=== PATIENT | female | born 1955 | race African-American/Black ===

== ENCOUNTER → 2016-12-13 | Outpatient (CLI) | payer OTHER ==
[2016-05-20 11:50] VITALS: BP 116/64
[~2016-12-13] MED LIST: AMLO5TAB2 PO; HYDR-971 PO; HYDR12.58 PO; Hydrocodone/Acetaminophen PO; LEVO50TA5 PO; OMEP40CA2 PO; RANI50VI5 IJ; SIMV20TA3 PO; VENL37.5 PO; VENL75TA PO
--- NOTE | 2016-12-14 11:22 | CARD ---
APPROVED REPORT EXAM: Two-dimensional and M-mode echocardiogram with Doppler and color Doppler. Other Information Quality : AverageHR: 77bpm Rhythm : NSR INDICATION Murmur 2D DIMENSIONS RVDd2.9 (2.9-3.5cm)Left Atrium(2D)3.4 (1.6-4.0cm) IVSd1.3 (0.7-1.1cm)Aortic Root(2D)2.0 (2.0-3.7cm) LVDd3.4 (3.9-5.9cm)LVOT Diameter2.0 (1.8-2.4cm) PWd1.2 (0.7-1.1cm)LVDs1.6 (2.5-4.0cm) FS (%) 33.0 %SV38.5 ml LVEF(%)65.0 (>50%) Aortic Valve AoV Peak Montana.137.9cm/sAoV VTI26.1cm AO Peak GR.7.6mmHgLVOT Peak Montana.135.6cm/s AO Mean GR.4mmHgAVA (VMAX)2.06cm2 Mitral Valve MV E Skrbcwdz12.6cm/sMV E Peak Gr.4mmHg MV DECEL [id number] A Wrgkgdwa85.5cm/s MV E Mean Gr.2mmHgMV LJI10gt E/A Ratio1.0MV A Pcaalwdl577dc MVA (PHT)3.47cm2 Tricuspid Valve TR P. Ecwndibz707tw/sRAP WAKYMHAW9lkSl TR Peak Gr.65ydUxQOSO57uwQy Pulmonary Vein S1 Fdwdvodi59.6cm/sD2 Ddiewkxa75.6cm/s PVa flizodkj901gfdp LEFT VENTRICLE The left ventricle is normal size. There is mild concentric left ventricular hypertrophy. Left ventri niall systolic function is hyperdynamic. The Ejection Fraction is 60-65%. There is normal LV segmental wall motion. The left ventricular diastolic function and filling is normal for age. There is no ventr icular septal defect visualized. RIGHT VENTRICLE The right ventricle is normal size. The right ventricle is mildly hypertrophied. The right ventricula r systolic function is normal. ATRIA The left atrium size is normal. The right atrium size is normal. The interatrial septum is intact wit h no evidence for an atrial septal defect or patent foramen ovale as noted on 2-D or Doppler imaging. AORTIC VALVE The aortic valve is trileaflet. The aortic valve is normal in structure and function. Doppler and Col or Flow revealed no significant aortic regurgitation. There is no significant aortic valvular stenosi s. MITRAL VALVE The mitral valve is normal in structure and function. There is no evidence of mitral valve prolapse. There is no mitral valve stenosis. Doppler and Color Flow revealed mild mitral regurgitation. TRICUSPID VALVE The tricuspid valve is normal in structure. Doppler and Color Flow revealed mild tricuspid regurgitat ion. There is no pulmonary hypertension. The PA pressure was estimated at 24 mmHg. PULMONIC VALVE The pulmonary valve is normal in structure. Doppler and Color Flow revealed mild pulmonic valvular re gurgitation. There is no pulmonic valvular stenosis. GREAT VESSELS The aortic root is normal in size. The ascending aorta is normal in size. The IVC is normal in size a nd collapses >50% with inspiration. PERICARDIAL EFFUSION There is no pleural effusion. There is no evidence of significant pericardial effusion. Critical Notification Critical Value: No <Conclusion> Left ventricle systolic function is hyperdynamic. The Ejection Fraction is 60-65%. There is normal LV segmental wall motion.
== END | disposition home or self-care (01) ==
LOC: ECHO 12:29
PROVIDERS: ATTEND Physician Assistant Medical
DX: R01.1 Cardiac murmur, unspecified (principal); I51.7 Cardiomegaly; I34.0 Nonrheumatic mitral (valve) insufficiency; I37.1 Nonrheumatic pulmonary valve insufficiency; I07.1 Rheumatic tricuspid insufficiency
CPT/HCPCS: 93306

== ENCOUNTER 2017-08-03 12:32 | Emergency (ER) | payer OTHER ==
[~2017-08-03] VITALS: Ht 162.6 cm; Wt 90.7 kg
--- NOTE | 2017-08-03 12:54 | EKG ---
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
--- NOTE | 2017-08-03 13:08 | RAD ---
AP chest, 08/03/2017: History: Headache, vomiting, weakness Comparison is made to a study from 02/13/2015. The heart size and pulmonary vascularity are normal. There is minimal linear basilar scarring. A tiny left parahilar nodule opacity probably represents a summation of vascular and rib shadows rather than a true pulmonary nodule. No pulmonary consolidation is seen. There is no evidence of pleural fluid. IMPRESSION: 1. No acute cardiopulmonary abnormality is detected. 2. Tiny left parahilar nodular shadow as described above. Radiographic follow-up is suggested to exclude an active process.
[2017-08-03 13:20] LABS: BASO # 0.1 x10^3/uL (0.0-0.2); BASO % 1 % (0-3); EOS % 1 % (0-3); HEMATOCRIT 49.1 % (36.0-47.0); HEMOGLOBIN 16.7 g/dL (12.0-15.5); LYMPH # 1.3 x10^3/uL (1.0-4.8); LYMPH % 28 % (24-48); MEAN CORPUSCULAR HEMOGLOBIN 31 pg (25-35); MEAN CORPUSCULAR HGB CONC 34 g/dL (31-37); MEAN CORPUSCULAR VOLUME 92 fL (79-100); MONO % 7 % (0-9); NEUT % 63 % (31-73); PLATELET COUNT 235 x10^3/uL (140-400); RED BLOOD COUNT 5.34 x10^6/uL (3.50-5.40); RED CELL DISTRIBUTION WIDTH 13.9 % (11.5-14.5); WHITE BLOOD COUNT 4.8 x10^3/uL (4.0-11.0)
[2017-08-03 13:25] LABS: INR 1.1 (0.8-1.1); PROTHROMBIN TIME PATIENT 13.4 SEC (11.7-14.0)
[2017-08-03] MEDS ORDERED: MECLIZINE HCL 12.5 MG TABLET. PO ONE (13:30)
[2017-08-03] MEDS ORDERED: ONDANSETRON PF 4 MG/2 ML VIAL. IV ONE (13:30)
[2017-08-03] MEDS ORDERED: IV NORMAL SALINE 1000ML BAG 1,000 ML IV ONE (13:30)
[2017-08-03] MEDS ORDERED: ACETAMINOPHEN 500 MG TABLET PO ONE (13:30)
[2017-08-03 13:49] LABS: BILIRUBIN,URINE NEGATIVE (NEG); GLUCOSE,URINE NEGATIVE (NEG); NITRITE,URINE NEGATIVE (NEG); PH,URINE 6.5; PROTEIN,URINE NEGATIVE (NEG-TRACE); UROBILINOGEN,URINE 0.2 mg/dL (0.2 mg/dL)
[2017-08-03 13:54] LABS: BACTERIA,URINE 0 /HPF (0-FEW); RBC,URINE OCC /HPF (0-2); SQUAMOUS EPITHELIAL CELL,UR MOD /LPF; WBC,URINE OCC /HPF (0-4)
--- NOTE | 2017-08-03 13:56 | RAD ---
CT head without contrast History: Weakness. Comparison: None. Procedure: Axial images are obtained of the head from the skull base through the vertex without IV contrast. Findings: Mild prominent appearing subdural space in the bifrontal region could be chronic hygromas or age related cerebral atrophic changes visualized. The ventricles and sulci are normal for the patient's age. No mass-effect, intracranial mass, midline shift, hemorrhage or obvious acute infarction is identified. Basilar cisterns are patent. Bone windows demonstrate no significant calvarial abnormality. The visualized paranasal sinuses appear clear. Impression: 1. No acute findings. Mild prominent appearing subdural space in the bifrontal region could be chronic hygromas or age related cerebral atrophic changes visualized. PQRS Compliance Statement: One or more of the following individualized dose reduction techniques were utilized for this examination: 1. Automated exposure control 2. Adjustment of the mA and/or kV according to patient size 3. Use of iterative reconstruction technique
[2017-08-03 14:26] LABS: CALCIUM 10.4 mg/dL (8.5-10.1); GFR 68.2; POTASSIUM 3.4 mmol/L (3.5-5.1)
[2017-08-03 14:31] LABS: ALBUMIN 4.2 g/dL (3.4-5.0); ALBUMIN/GLOBULIN RATIO 1.1 (1.0-1.7); MAGNESIUM 2.3 mg/dL (1.8-2.4); TOTAL BILIRUBIN 0.5 mg/dL (0.2-1.0); TOTAL PROTEIN 8.1 g/dL (6.4-8.2)
--- NOTE | 2017-08-03 14:38 | PHYS DOC ---
Past Medical History Past Medical History: GERD, High Cholesterol, Hypertension, Hypothyroid Past Surgical History: , Other Additional Past Surgical Histo: lypoma from back of neck; partial thyrodectomy Alcohol Use: Rarely Drug Use: None Adult General Chief Complaint Chief Complaint: nausea and vomiting HPI HPI Patient is a 61 year old female who presents with nausea that started around 9: 30 this morning. She states she just wasn't feeling very well. She was at work and around lunchtime she thought maybe she should eat, she repeatedly checked her blood pressure which was slightly elevated. When she did attempt to eat she vomited the food back up. She had some dizziness described as vertigo when she would move her head read she denies any sinus congestion or ear pain, no sore throat. Denies significant cough, no fevers, no chest pain or shortness of breath. She continues to have the nausea, no prior similar symptoms. Patient has a follow-up appointment with her primary care physician tomorrow. Denies cardiac disease, does have a history of hypertension and hyperlipidemia. She had an echocardiogram performed earlier this year that was normal. Review of Systems Review of Systems Constitutional: Denies fever or chills [] Eyes: Denies change in visual acuity, redness, or eye pain [] HENT: Denies nasal congestion or sore throat [] Respiratory: Denies cough or shortness of breath [] Cardiovascular: Denies chest pain GI: Denies abdominal pain, bloody stools or diarrhea [] : Denies dysuria or hematuria [] Musculoskeletal: Denies back pain or joint pain [] Integument: Denies rash or skin lesions [] Neurologic: Developed a left-sided headache , denies focal weakness or sensory changes [] Current Medications Current Medications Current Medications Medications (Trade) Dose Ordered Sig/Inderjit Start Time Stop Time Status Last Admin Dose Admin Acetaminophen (Tylenol) 1,000 mg 1X ONCE 08/03/17 13:30 08/03/17 13:31 DC 08/03/17 13:29 1,000 MG Meclizine HCl (Antivert) 25 mg 1X ONCE 08/03/17 13:30 08/03/17 13:31 DC 08/03/17 13:29 25 MG Metoclopramide HCl (Reglan) 10 mg 1X ONCE 08/03/17 14:45 08/03/17 14:46 DC 08/03/17 14:50 10 MG Ondansetron HCl (Zofran) 4 mg 1X ONCE 08/03/17 13:30 08/03/17 13:31 DC 08/03/17 13:29 4 MG Sodium Chloride 1,000 ml @ 1,000 mls/hr 1X ONCE 08/03/17 13:30 08/03/17 14:29 DC 08/03/17 13:28 1,000 MLS/HR Allergies Allergies Allergies Coded Allergies Type Severity Reaction Last Updated Verified codeine Allergy Intermediate takes Lortab at home 05/20/16 No Physical Exam Physical Exam Constitutional: Well developed, well nourished, no acute distress, non-toxic appearance. [] HENT: Normocephalic, atraumatic, bilateral external ears normal, oropharynx moist, no oral exudates, nose normal. [] Eyes: PERRLA, EOMI, conjunctiva normal, no discharge. [] Neck: Normal range of motion, no tenderness, supple, no stridor. [] Cardiovascular:Heart rate regular rhythm, no murmur [] Lungs & Thorax: Bilateral breath sounds clear to auscultation , no wheeze or crackles Abdomen: Bowel sounds normal, soft, no tenderness, no masses, no pulsatile masses. [] Skin: Warm, dry, no erythema, no rash. [] Back: No tenderness, no CVA tenderness. [] Extremities: No tenderness, no cyanosis, no clubbing, ROM intact, no edema. [] Neurologic: Alert and oriented X 3, normal motor function, normal sensory function, no focal deficits noted. Cranial nerves II through XII intact, 5 over 5 bilateral handgrip Psychologic: Affect normal, judgement normal, mood normal. [] Current Patient Data Vital Signs Vital Signs Date Time Temp Pulse Resp B/P (MAP) Pulse Ox O2 Delivery O2 Flow Rate FiO2 08/03/17 12:32 98.3 78 18 157/83 (107) 94 Room Air 98.3 Lab Values Laboratory Tests Test 08/03/17 13:05 08/03/17 13:35 White Blood Count 4.8 x10^3/uL (4.0-11.0) Red Blood Count 5.34 x10^6/uL (3.50-5.40) Hemoglobin 16.7 g/dL (12.0-15.5) H Hematocrit 49.1 % (36.0-47.0) H Mean Corpuscular Volume 92 fL (79-100) Mean Corpuscular Hemoglobin 31 pg (25-35) Mean Corpuscular Hemoglobin Concent 34 g/dL (31-37) Red Cell Distribution Width 13.9 % (11.5-14.5) Platelet Count 235 x10^3/uL (140-400) Neutrophils (%) (Auto) 63 % (31-73) Lymphocytes (%) (Auto) 28 % (24-48) Monocytes (%) (Auto) 7 % (0-9) Eosinophils (%) (Auto) 1 % (0-3) Basophils (%) (Auto) 1 % (0-3) Neutrophils # (Auto) 3.0 x10^3uL (1.8-7.7) Lymphocytes # (Auto) 1.3 x10^3/uL (1.0-4.8) Monocytes # (Auto) 0.3 x10^3/uL (0.0-1.1) Eosinophils # (Auto) 0.1 x10^3/uL (0.0-0.7) Basophils # (Auto) 0.1 x10^3/uL (0.0-0.2) Prothrombin Time 13.4 SEC (11.7-14.0) Prothrombin Time INR 1.1 (0.8-1.1) Sodium Level 141 mmol/L (136-145) Potassium Level 3.4 mmol/L (3.5-5.1) L Chloride Level 102 mmol/L (98-107) Carbon Dioxide Level 27 mmol/L (21-32) Anion Gap 12 (6-14) Blood Urea Nitrogen 16 mg/dL (7-20) Creatinine 1.0 mg/dL (0.6-1.0) Estimated GFR (Cockcroft-Gault) 68.2 BUN/Creatinine Ratio 16 (6-20) Glucose Level 120 mg/dL (70-99) H Calcium Level 10.4 mg/dL (8.5-10.1) H Magnesium Level 2.3 mg/dL (1.8-2.4) Total Bilirubin 0.5 mg/dL (0.2-1.0) Aspartate Amino Transferase (AST) 30 U/L (15-37) Alanine Aminotransferase (ALT) 26 U/L (14-59) Alkaline Phosphatase 73 U/L (46-116) Troponin I Quantitative < 0.017 ng/mL (0.000-0.055) Total Protein 8.1 g/dL (6.4-8.2) Albumin 4.2 g/dL (3.4-5.0) Albumin/Globulin Ratio 1.1 (1.0-1.7) Urine Collection Type Unknown Urine Color Yellow Urine Clarity Clear Urine pH 6.5 Urine Specific Burnham 1.015 Urine Protein Negative mg/dL (NEG-TRACE) Urine Glucose (UA) Negative mg/dL (NEG) Urine Ketones (Stick) Negative mg/dL (NEG) Urine Blood Negative (NEG) Urine Nitrite Negative (NEG) Urine Bilirubin Negative (NEG) Urine Urobilinogen Dipstick 0.2 mg/dL (0.2 mg/dL) Urine Leukocyte Esterase Negative (NEG) Urine RBC Occ /HPF (0-2) Urine WBC Occ /HPF (0-4) Urine Squamous Epithelial Cells Mod /LPF Urine Bacteria 0 /HPF (0-FEW) Laboratory Tests 08/03/17 13:05 Laboratory Tests 08/03/17 13:05 EKG EKG 80 bpm, sinus, normal axis, QTC of 491, T-wave inversions noted in leads 1, V3 through V6, no previous EKG available for comparison, no ST elevation or depression, interpreted by me[] Radiology/Procedures Radiology/Procedures head w/o: Impression: 1. No acute findings. Mild prominent appearing subdural space in the bifrontal region could be chronic hygromas or age related cerebral atrophic changes visualized. CXR: IMPRESSION: 1. No acute cardiopulmonary abnormality is detected. 2. Tiny left parahilar nodular shadow as described above. Radiographic follow-up is suggested to exclude an active process. Course & Med Decision Making Course & Med Decision Making Pertinent Labs and Imaging studies reviewed. (See chart for details) She was given IV fluids, Zofran, meclizine and Tylenol. Her symptoms did improve with exception of some mild persistent nausea. She is no longer having any dizziness, she is ambulating without any assistance. Offered admission but pt prefers dc home. Due to the abnormal EKG and no prior EKGs, we'll perform a 6 hour repeat troponin at 3:30. If negative, the patient will follow up with her primary physician tomorrow, discharged with Zofran. Dr. Amanda Ji , who will review repeat troponin. Strict return precautions given. Amandaon Disclaimer Reinaldo Disclaimer This electronic medical record was generated, in whole or in part, using a voice recognition dictation system. Departure Departure Impression: Primary Impression: Nausea Additional Impression: Vertigo Disposition: HOME, SELF-CARE Condition: STABLE Referrals: JACKY CASTAÑEDA (PCP) Scripts Ondansetron (ZOFRAN ODT) 4 Mg Tab.rapdis 1 TAB SL Q8HRS Y for NAUSEA, #10 TAB Prov: ASHLEY PATEL MD 08/03/17 Problem Qualifiers ASHLEY PATEL MD Aug 03, 2017 14:38
[2017-08-03] MEDS ORDERED: METOCLOPRAMIDE HCL 10 MG/2 ML VIAL. IV ONE (14:45)
[2017-08-03] MEDS ORDERED: ONDA4TAB10 SL (15:18)
[2017-08-03 16:39] VITALS: BP 122/63
== END 2017-08-03 16:40 | disposition home or self-care (01) ==
LOC: ER 12:32
DX: R11.0 Nausea (principal); R42 Dizziness and giddiness; R51 Headache; E03.9 Hypothyroidism, unspecified; E78.00 Pure hypercholesterolemia, unspecified; I10 Essential (primary) hypertension; K21.9 Gastro-esophageal reflux disease without esophagitis; Z88.5 Allergy status to narcotic agent
CPT/HCPCS: 36415; 70450; 71010; 80053; 81001; 83735; 84484; 85025; 85610; 93005; 96361; 96374; 96375; 99285; J2405; J2765; J7030; J8597

== ENCOUNTER → 2018-01-13 | Outpatient (CLI) | payer OTHER | END | disposition home or self-care (01) | LOC: KCIC US 07:59 | DX: I12.9 Hypertensive chronic kidney disease with stage 1 through stage 4 chronic kidney disease, or unspecified chronic kidney disease (principal); N18.3 Chronic kidney disease, stage 3 (moderate); E78.00 Pure hypercholesterolemia, unspecified; E03.9 Hypothyroidism, unspecified; Z87.891 Personal history of nicotine dependence | CPT/HCPCS: 76770 ==

== ENCOUNTER → 2018-07-18 | Outpatient (CLI) | payer OTHER ==
[~2018-07-18] MED LIST changes: -AMLO5TAB2 PO; +AMLO5TAB7 PO; +ONDA4TAB10 SL
--- NOTE | 2018-07-18 16:32 | KCIC ---
COMPLETE RENAL ULTRASOUND Indication: Six-month follow-up of left kidney complicated cyst. Comparison: Renal ultrasound, 01/13/2018. Procedure: Transabdominal ultrasound images are obtained of the kidneys and bladder. Findings: The kidneys demonstrate normal cortical echotexture. Corticomedullary differentiation is preserved. There is no hydronephrosis. The right kidney measures 9.6 cm. The left kidney measures 10.7 cm. Partially exophytic interpolar right renal cyst measures up to 1.3 cm. This cyst not seen previously. Cyst of the left kidney measures 2.1 x 2.5 x 2.4 cm, previously 2.8 x 2.1 x 2.3 cm. Question a thin internal septation. Color Doppler interrogation is negative. The urinary bladder appears normal. IMPRESSION: 1. Interval stability of left renal cyst. 2. No hydronephrosis. Electronically signed by: Joe Doresy MD (07/18/2018 4:29 PM) [id number]
== END | disposition home or self-care (01) ==
LOC: KCIC US 10:03
PROVIDERS: ATTEND Physician Assistant Medical
DX: N28.1 Cyst of kidney, acquired (principal); I12.9 Hypertensive chronic kidney disease with stage 1 through stage 4 chronic kidney disease, or unspecified chronic kidney disease; N18.3 Chronic kidney disease, stage 3 (moderate)
CPT/HCPCS: 76770

== ENCOUNTER → 2018-08-04 | Outpatient (CLI) | payer OTHER ==
--- NOTE | 2018-08-04 17:51 | KCIC ---
HIP RIGHT 2V WITH PELVIS History: Right hip pain for 6 weeks with movement.. Comparison: None are available AP view of the pelvis is obtained as are 2 views of the right hip. Mild degenerative changes at both hips, and at the pubic symphysis and sacroiliac joints. No evidence of an acute fracture. No aggressive bone destruction. Small pelvic calcifications are likely benign phleboliths. There is some retained stool in the colon. The partially visualized lower spine is degenerative. IMPRESSION: Chronic and degenerative changes. Electronically signed by: Travis Young MD (08/04/2018 5:48 PM) [facility]-KCIC2
== END | disposition home or self-care (01) ==
LOC: KCIC 14:23
PROVIDERS: ATTEND Physician Assistant Medical
DX: M16.11 Unilateral primary osteoarthritis, right hip (principal); M47.898 Other spondylosis, sacral and sacrococcygeal region
CPT/HCPCS: 73502

== ENCOUNTER → 2021-06-02 | Outpatient (CLI) | payer MEDICARE ==
[2019-12-02 13:30] VITALS: BP 145/90
[~2021-06-02] MED LIST changes: +AMLO-186 PO; -AMLO5TAB7 PO; +HYDR-3164 PO; -HYDR-971 PO; +SIMV20TA18 PO; -SIMV20TA3 PO
--- NOTE | 2021-06-02 14:11 | CARD ---
MR#: [id number] Date of Study: 06/02/2021 Ordering Physician: ANAHI BATISTA, Referring Physician: David PORTER: [facility] APPROVED REPORT EXAM: Two-dimensional and M-mode echocardiogram with Doppler and color Doppler. Other Information Quality : AverageHR: 80bpm Rhythm : NSR INDICATION Murmur RISK FACTORS Hypertension 2D DIMENSIONS Left Atrium(2D)3.7 (1.6-4.0cm)IVSd1.5 (0.7-1.1cm) Aortic Root(2D)2.8 (2.0-3.7cm)LVDd2.9 (3.9-5.9cm) LVOT Diameter2.0 (1.8-2.4cm)PWd1.5 (0.7-1.1cm) LVDs1.4 (2.5-4.0cm)FS (%) 52.1 % SV27.4 mlLVEF(%)84.6 (>50%) Aortic Valve AoV Peak Montana.214.5cm/sAoV VTI36.4cm AO Peak GR.18.4mmHgLVOT Peak [place].215.8cm/s LVOT VTI 31.95cmAO Mean GR.10mmHg MARIZA (VMAX)2.44rd8GXY (VTI)2.76cm2 Mitral Valve MV E Mdndbxrr93.6cm/sMV DECEL PALO181jp MV A Wirfspwe373.1cm/sMV SJH61wv E/A Ratio0.7MVA (PHT)2.48cm2 TDI E/Lateral E'26.7E/Medial E'21.6 Pulmonary Valve PV Peak Heamgbnc068.3cm/sPV Peak Grad.7mmHg Tricuspid Valve TR P. Ldyhkgqf386dh/sTR Peak Gr.14mmHg Pulmonary Vein S1 Xnwqautz56.2cm/sD2 Prkbciso54.1cm/s LEFT VENTRICLE The left ventricle is normal size. There is moderate to severe concentric left ventricular hypertroph y. The left ventricular systolic function is normal and the ejection fraction is within normal range. EF 55% There is normal LV segmental wall motion. Transmitral Doppler flow pattern is Grade II-pseudo normal filling dynamics. No left ventricle thrombus noted on this study. There is no ventricular sept al defect visualized. There is no left ventricular aneurysm. There is no mass noted in the left ventr icle. RIGHT VENTRICLE The right ventricle is normal size. There is normal right ventricular wall thickness. The right ventr icular systolic function is normal. ATRIA The left atrium is moderately dilated. The right atrium size is normal. The interatrial septum is int act with no evidence for an atrial septal defect or patent foramen ovale as noted on 2-D or Doppler i maging. AORTIC VALVE The aortic valve is normal in structure and function. Doppler and Color Flow revealed no significant aortic regurgitation. There is no significant aortic valvular stenosis. There is no aortic valvular v egetation. MITRAL VALVE The mitral valve is thickened but opens well. There is no evidence of mitral valve prolapse. There is no mitral valve stenosis. Doppler and Color-flow revealed mild mitral regurgitation. TRICUSPID VALVE The tricuspid valve is normal in structure and function. Doppler and Color Flow revealed trace tricus pid regurgitation. There is no tricuspid valve prolapse or vegetation. There is no tricuspid valve st enosis. PULMONIC VALVE Trivial pulmonic regurgitation There is no pulmonic valvular stenosis. GREAT VESSELS The aortic root is normal in size. The ascending aorta is normal in size. The IVC is normal in size a nd collapses >50% with inspiration. PERICARDIAL EFFUSION There is no pleural effusion. There is no evidence of significant pericardial effusion. Critical Notification Critical Value: No <Conclusion> The left ventricular systolic function is normal and the ejection fraction is within normal range. EF 55% There is normal LV segmental wall motion. There is moderate to severe concentric left ventricular hypertrophy. Murmur probably related to LVH and outflow murmur. Signed by : Gokul Dunaway, Electronically Approved : 06/02/2021 14:11:23
== END ==
LOC: ECHO 09:44
PROVIDERS: ATTEND Family Medicine
DX: I08.8 Other rheumatic multiple valve diseases (principal); R01.1 Cardiac murmur, unspecified
CPT/HCPCS: 93306

== ENCOUNTER → 2021-06-30 | Outpatient (CLI) | payer MEDICARE ==
[2019-12-02 13:30] VITALS: BP 145/90
--- NOTE | 2021-07-01 09:56 | KCIC ---
XR HIP (WITH OR WITHOUT PELVIS) 1 VIEW History: Bilateral hip pain Comparison: 08/04/2018 Technique: Standing AP pelvis. Frog-leg lateral views of the bilateral hips. Findings: Osseous mineralization is normal. No fracture or dislocaton. Severe superior femoral acetabular narro wing in the right hip. Right circumferential femoral acetabular osteophytes. Mild left femoral acetab ular narrowing. Bilateral subchondral sclerosis and cystic change. Findings progressive from 2018 bertha aterally. Mild pubic symphysis sclerosis. The sacroiliac joints are unremarkable. Mild degenerative c hanges of lower lumbar spine. Impression: 1. Right greater than left hip osteoarthritis, progressive from 2018. Electronically signed by: Job Anand MD (07/01/2021 9:53 AM) [id number]
== END ==
LOC: KCIC 15:19
PROVIDERS: ATTEND Physician Assistant Medical
DX: M16.0 Bilateral primary osteoarthritis of hip (principal); M25.751 Osteophyte, right hip; M25.852 Other specified joint disorders, left hip; M25.851 Other specified joint disorders, right hip; M47.816 Spondylosis without myelopathy or radiculopathy, lumbar region
CPT/HCPCS: 73521